=== PATIENT | male | born 1980 | race Caucasian/White ===

== ENCOUNTER 2020-10-10 14:10 | Outpatient (CLI) | payer OTHER ==
[2020-10-11 19:00] LABS: SARS-CoV-2 PCR by NAA Not Detected (NotDetected)
== END 2020-10-10 14:11 | disposition home or self-care (01) ==
LOC: LABBT 14:10
PROVIDERS: ATTEND Student in an Organized Health Care Education/Training Program
DX: Z01.812 Encounter for preprocedural laboratory examination (principal); Z20.822 Contact with and (suspected) exposure to COVID-19
CPT/HCPCS: U0003; U0005

== ENCOUNTER 2020-10-14 11:50 | Day surgery (SDC) | payer OTHER ==
[2020-10-13 11:00] VITALS: BMI 28.8
[2020-10-14] MEDS ORDERED: Bacitracin Zinc Ointment 30 gm TUBE ONE (12:16)
[2020-10-14] MEDS ORDERED: AFRIN NASAL MIST 15 ML BOT ONE ×2 (12:16→12:51)
[2020-10-14] MEDS ORDERED: EPINEPHrine 1 MG/ML AMP ONE (12:16)
[2020-10-14] MEDS ORDERED: Lidocaine 1% w/Epinephrine 1:100K 20 ML VIAL ONE (12:16)
[2020-10-14] MEDS ORDERED: SUGAMMADEX SODIUM 200 MG/2 ML VIAL ONE (12:21)
[2020-10-14] MEDS ORDERED: Fentanyl 100 MCG/2 ML VIAL ONE (12:21)
[2020-10-14] MEDS ORDERED: Famotidine/PF 20 mg/2ml Vial ONE (12:21)
[2020-10-14] MEDS ORDERED: Propofol 1,000 MG/100 ML VIAL IV ONE (12:31)
[2020-10-14] MEDS ORDERED: Propofol 500 MG/50 ML VIAL ONE (12:31)
[2020-10-14] MEDS ORDERED: Midazolam HCl 2 mg/2 ml Vial ONE (13:52)
[2020-10-14] MEDS ORDERED: Dexamethasone 20 MG/5 ML VIAL ONE (14:02)
[2020-10-14] MEDS ORDERED: Lidocaine 1% PF 5 ML VIAL ONE (14:02)
[2020-10-14] MEDS ORDERED: PROPOFOL 200 MG/20 ML VIAL ONE (14:02)
[2020-10-14] MEDS ORDERED: Rocuronium Bromide 10 MG/ML (10ML VIAL) ONE (14:02)
[2020-10-14] MEDS ORDERED: Ondansetron PF 4 MG/2 ML Vial ONE (14:02)
[2020-10-14] MEDS ORDERED: Metoclopramide HCl 10 MG/2 ML VIAL ONE (14:02)
[2020-10-14] MEDS ORDERED: Triamcinolone 40 MG/ML VIAL ONE (15:56)
[2020-10-14] MEDS ORDERED: Labetalol HCl 100 MG/20 ML VIAL ONE (18:08)
[2020-10-14] MEDS ORDERED: Hydrocodone-Acetamin 15 ML UDCUP ONE (18:25)
[2020-10-14] MEDS ORDERED: hydrALAZINE 20 MG/ML VIAL ONE (18:40)
== END 2020-10-14 20:20 | disposition home or self-care (01) ==
LOC: SDC 11:50
PROVIDERS: ATTEND Student in an Organized Health Care Education/Training Program
PROC: 09BK8ZZ Excision of Nasal Mucosa and Soft Tissue, Via Natural or Artificial Opening Endoscopic (ICD-10-PCS; principal; 2020-10-14)
PROC: 09QT8ZZ Repair Left Frontal Sinus, Via Natural or Artificial Opening Endoscopic (ICD-10-PCS; principal; 2020-10-14)
PROC: 09QX8ZZ Repair Left Sphenoid Sinus, Via Natural or Artificial Opening Endoscopic (ICD-10-PCS; principal; 2020-10-14)
PROC: 09QW8ZZ Repair Right Sphenoid Sinus, Via Natural or Artificial Opening Endoscopic (ICD-10-PCS; principal; 2020-10-14)
PROC: 09QQ8ZZ Repair Right Maxillary Sinus, Via Natural or Artificial Opening Endoscopic (ICD-10-PCS; principal; 2020-10-14)
PROC: 09BL8ZZ Excision of Nasal Turbinate, Via Natural or Artificial Opening Endoscopic (ICD-10-PCS; principal; 2020-10-14)
PROC: 09QS8ZZ Repair Right Frontal Sinus, Via Natural or Artificial Opening Endoscopic (ICD-10-PCS; principal; 2020-10-14)
PROC: 09QR8ZZ Repair Left Maxillary Sinus, Via Natural or Artificial Opening Endoscopic (ICD-10-PCS; principal; 2020-10-14)
DX: J32.8 Other chronic sinusitis (principal); J34.2 Deviated nasal septum; J34.3 Hypertrophy of nasal turbinates; J34.89 Other specified disorders of nose and nasal sinuses; J33.9 Nasal polyp, unspecified
CPT/HCPCS: 93005; 93010; J0171; J0360; J1100; J2250; J2405; J2704; J2765; J3010; J3301; S0028